=== PATIENT | female | born 2005 | race Caucasian/White ===

== ENCOUNTER 2025-04-13 09:15 | Emergency (ER) | payer OTHER ==
[~2025-04-13] VITALS: Ht 157.5 cm; Wt 68.0 kg
== END 2025-04-13 11:27 | disposition home or self-care (01) ==
LOC: ER 09:15
DX: S61.012A Laceration without foreign body of left thumb without damage to nail, initial encounter (principal); F17.200 Nicotine dependence, unspecified, uncomplicated; Z59.89 Other problems related to housing and economic circumstances; W26.8XXA Contact with other sharp object(s), not elsewhere classified, initial encounter
CPT/HCPCS: 12001; 99282-25

== ENCOUNTER 2025-06-09 06:58 | Emergency (ER) | payer OTHER ==
[~2025-06-09] VITALS: Ht 160 cm; Wt 71.7 kg
[2025-06-09] MEDS ORDERED: BENADRYL25 MG PO (08:54)
== END 2025-06-09 11:00 | disposition home or self-care (01) ==
LOC: ER 06:58
DX: L25.1 Unspecified contact dermatitis due to drugs in contact with skin (principal); T44.905A Adverse effect of unspecified drugs primarily affecting the autonomic nervous system, initial encounter; F17.290 Nicotine dependence, other tobacco product, uncomplicated
CPT/HCPCS: 93005; 93010; 99283-25; A9270